=== PATIENT | female | born 1995 | race Two or more races ===

== ENCOUNTER 2022-12-28 09:16 | Outpatient (CLI) | payer OTHER | END 2022-12-28 11:35 | disposition home or self-care (01) | LOC: PRENATAL 09:16 | PROVIDERS: ATTEND Obstetrics & Gynecology Maternal & Fetal Medicine | DX: O36.80X0 Pregnancy with inconclusive fetal viability, not applicable or unspecified (principal); Z3A.11 11 weeks gestation of pregnancy ==

== ENCOUNTER 2023-02-26 13:09 | Outpatient (CLI) | payer OTHER | END 2023-02-26 14:36 | disposition home or self-care (01) | LOC: PRENATAL 13:09 | PROVIDERS: ATTEND Obstetrics & Gynecology Maternal & Fetal Medicine | DX: O35.9XX0 Maternal care for (suspected) fetal abnormality and damage, unspecified, not applicable or unspecified (principal); O35.3XX0 Maternal care for (suspected) damage to fetus from viral disease in mother, not applicable or unspecified; Z3A.20 20 weeks gestation of pregnancy ==

== ENCOUNTER 2023-07-10 12:50 | Inpatient (IN) | payer OTHER ==
[~2023-07-10] VITALS: Ht 165.1 cm; Wt 83.5 kg
[2023-07-10] MEDS ORDERED: PRENATABS RX T1 EACH PO (13:01)
[2023-07-10 13:53] LABS: HEMOGLOBIN 13.7 g/dL (12.0-15.00); MEAN CORPUSCULAR HEMOGLOBIN 30.8 pg (27.00-32.0); MEAN CORPUSCULAR HGB CONC 34.2 g/dl (32.0-36.0); PLATELET COUNT 219 K/uL (150-450); RED BLOOD COUNT 4.45 M/uL (4.00-6.00); RED CELL DISTRIBUTION WIDTH 14.5 % (11.5-14.5)
[2023-07-10 13:53] LABS: PH,URINE 6.5 (5.0-8.0); URINE APPEARANCE Clear; URINE BILIRRUBIN Negative (NEGATIVE); URINE BLOOD Negative; URINE COLOR Yellow; URINE GLUCOSE Negative (NEGATIVE); URINE LEUKOCYTE Small; URINE NITRATE Negative; URINE PROTEIN Negative (NEGATIVE); URINE UROBILINOGEN 0.2 E.U./dl
[2023-07-10 13:59] LABS: URINE BACTERIA 1744.9 uL (0.0-1933); URINE EPITHELIAL CELLS 37.5 uL (0.0-38.8)
[2023-07-10 14:09] LABS: INR < 0.93; PARTIAL THROMBOPLASTIN TIME 29.1 SECONDS (22.0-34.0); PROTHROMBIN TIME 9.5 SECONDS (9.0-11.5)
[2023-07-10 14:12] LABS: CALCIUM 9.4 mg/dL (8.5-10.1); CREATININE SERUM 0.61 mg/dL (0.55-1.02); GFR 118.56; POTASSIUM 4.37 mEq/L (3.5-5.1)
[2023-07-10 16:09] LABS: ABG PH 7.423 (7.35-7.45); ABG pCO2 32.1 mmHg (35-45); BASE EXCESS -2.9 mmol/l; BICARBONATE 20.5 mmol/l (23-25); SaO2 66.4 %; Tco2 21.5 mmol/l
[2023-07-10 16:19] LABS: o2 21 %
[2023-07-10 20:38] LABS: HEMATOCRIT 36.4 % (36.0-45.00); HEMOGLOBIN 12.1 g/dL (12.0-15.00); MEAN CELL VOLUME 91.2 fL (80.00-100.00); MEAN CORPUSCULAR HEMOGLOBIN 30.2 pg (27.00-32.0); MEAN CORPUSCULAR HGB CONC 33.1 g/dl (32.0-36.0); PLATELET COUNT 187 K/uL (150-450); RED BLOOD COUNT 3.99 M/uL (4.00-6.00); RED CELL DISTRIBUTION WIDTH 13.9 % (11.5-14.5)
== END 2023-07-12 11:50 | disposition home or self-care (01) | DRG 807 ==
LOC: OB/GYN 12:50 → LDR 12:50 → OB/GYN 15:13
PROVIDERS: ADMIT Obstetrics & Gynecology; ATTEND Obstetrics & Gynecology
PROC: 10E0XZZ Delivery of Products of Conception, External Approach (ICD-10-PCS; principal; 2023-07-10)
PROC: 0W8NXZZ Division of Female Perineum, External Approach (ICD-10-PCS; 2023-07-10)
PROC: 4A1HXCZ Monitoring of Products of Conception, Cardiac Rate, External Approach (ICD-10-PCS; 2023-07-10)
DX: O99.824 Streptococcus B carrier state complicating childbirth (principal); Z37.0 Single live birth; Z3A.34 34 weeks gestation of pregnancy; Z20.822 Contact with and (suspected) exposure to COVID-19